=== PATIENT | male | born 1980 | race Caucasian/White ===

== ENCOUNTER 2019-06-28 20:35 | Emergency (ER) | payer MEDICAID, OTHER ==
[~2019-06-28] VITALS: Ht 162.6 cm; Wt 59.3 kg
[~2019-06-28 20:35] MED LIST: HYDR-4011 PO
[2019-06-28 20:48] VITALS: BP 153/105; PULSE 92; RESP 20; Ht 162.6 cm; Wt 59.3 kg
[2019-06-28] MEDS ORDERED: HYDROCODONE/APAP (5/325) TAB PO ONE (22:30)
[2019-06-28] MEDS ORDERED: LORAZEPAM 0.5 MG TAB PO ONE (22:30)
== END 2019-06-29 00:18 | disposition home or self-care (01) ==
LOC: FTE 20:35
DX: M79.10 Myalgia, unspecified site (principal); E11.65 Type 2 diabetes mellitus with hyperglycemia
CPT/HCPCS: 71045; 80053; 81003; 82550; 82962; 85025; Z7502; Z7610